=== PATIENT | female | born 1960 | race Caucasian/White ===

== ENCOUNTER 2018-02-26 08:16 | Emergency (ER) | payer OTHER ==
--- NOTE | 2018-02-26 08:26 | PDOC ---
History of Present Illness - General Chief Complaint: Ear Problem Stated Complaint: BOTH EAR PAIN Time Seen by Provider: 02/26/18 08:21 History Source: Patient Exam Limitations: No Limitations - History of Present Illness Initial Comments: 57 yo F history prediabetes presents with B/L ear pain, R worse than L. No drainage from ears, however, she states she has had multiple ear infections as an adult. Denies polyuria. No recent fever/chills. She has not had a check-up in "a while". Past History - Past Medical History Allergies/Adverse Reactions: Allergies Allergy/AdvReac Type Severity Reaction Status Date / Time oxycodone HCl [From Percocet] AdvReac Intermediate Vomiting Verified 02/26/18 08 :17 Home Medications: Ambulatory Orders Triamcinolone Acetonide [Nasacort] 1 spray NS BID #1 bottle 02/26/18 Anemia: No Asthma: No Cancer: No Cardiac Disorders: No CVA: No COPD: No CHF: No Dementia: No Diabetes: No GI Disorders: No Disorders: No HTN: No Hypercholesterolemia: No Liver Disease: No Seizures: No Thyroid Disease: No - Surgical History Abdominal Surgery: Yes ([facility]ANDA) Appendectomy: No Cardiac Surgery: No Cholecystectomy: No Lung Surgery: No Neurologic Surgery: Yes (CERVICAL DISCECTOMY LAST X 2 WITH HARDWARE 2007-LAST) Orthopedic Surgery: Yes (RIGHT KNEE ARTHROSCOPY X 2) - Suicide/Smoking/Psychosocial Hx Smoking Status: Yes Smoking History: Current every day smoker Have you smoked in the past 12 months: Yes Number of Cigarettes Smoked Daily: 10 'Breaking Loose' booklet given: 07/17/14 Hx Alcohol Use: No Drug/Substance Use Hx: No Substance Use Type: None Hx Substance Use Treatment: No Review of Systems - Review of Systems Able to Perform ROS?: Yes Comments:: GENERAL/CONSTITUTIONAL: No fever or chills. No weakness. HEAD, EYES, EARS, NOSE AND THROAT: No change in vision. +B/L ear pain, no discharge. No sore throat. GASTROINTESTINAL: No nausea, vomiting, diarrhea or constipation. GENITOURINARY: No dysuria, frequency, or change in urination. SKIN: No rash NEUROLOGIC: No headache, vertigo, loss of consciousness, or change in strength/ sensation. *Physical Exam - Physical Exam Comments: GENERAL: Awake, alert, and fully oriented, in no acute distress HEAD: No signs of trauma EYES: PERRLA, EOMI, sclera anicteric, conjunctiva clear ENT: Auricles normal inspection, hearing grossly normal, nares patent. Moist mucosa. +Dried cerumen in B/L EACs, however, TMs visible, no erythema, no effusion. No pain on movement of pinna. Nasal turbinates boggy B/L. NECK: Normal ROM, supple, no lymphadenopathy, JVD, or masses NEUROLOGICAL: Cranial nerves II through XII grossly intact. Normal speech, normal gait SKIN: Warm, Dry, normal turgor, no rashes or lesions noted. Medical Decision Making - Medical Decision Making No visible signs of infection. However, she did have boggy turbinates and commented that her ears hurt when she chews. This may be result of allergic symptoms. Recommended nasacort spray daily for at least a week to see effect. Also checked patient's insurance and cross-referenced with [place] providers so that she could get a new PMD (she is not satisfied with current PMD), as she needs to resume outpatient f/u (previously lost her insurance, recently got it back). *DC/Admit/Observation/Transfer Diagnosis at time of Disposition: Ear pain Qualifiers: Laterality: bilateral Qualified Code(s): H92.03 - Otalgia, bilateral - Discharge Dispostion Disposition: HOME Condition at time of disposition: Stable Decision to Admit order: No - Prescriptions Prescriptions: Triamcinolone Acetonide [Nasacort] 1 spray NS BID #1 bottle - Referrals Referrals: Virgilio Weaver MD [Staff Physician] - - Patient Instructions Printed Discharge Instructions: DI for Ear Pain-Adult - Post Discharge Activity
[2018-02-26 08:34] VITALS: BP 102/60; PULSE 72; TEMP 97.5; BMI 58.6
== END 2018-02-26 09:03 | disposition home or self-care (01) ==
LOC: FER 08:16
DX: H92.03 Otalgia, bilateral (principal); F17.210 Nicotine dependence, cigarettes, uncomplicated
CPT/HCPCS: 82962; 99282-25

== ENCOUNTER 2019-12-18 23:05 | Emergency (ER) | payer OTHER ==
[2019-12-18 23:12] VITALS: BP 101/64; PULSE 76; TEMP 98.5; BMI 26.4
--- NOTE | 2019-12-19 00:08 | PDOC ---
History of Present Illness - General Chief Complaint: Pain Stated Complaint: CHEST, ABDOMINAL PAIN Time Seen by Provider: 12/18/19 23:23 History Source: Patient Exam Limitations: No Limitations - History of Present Illness Initial Comments: 12/19/19 00:06 This is a 59-year-old female who comes in complaining of abdominal pain and chest pain. Patient has had abdominal pain x2 to 3 weeks intermittent associated with some constipation. Patient has been straining at her stools and had some intermittent bright red blood as well. Patient attempted to self disimpact herself but was unsuccessful as she said the rectal vault was empty. Patient also gave herself a fleets enema without any relief. Patient is also tried [id number] Dulcolax patient otherwise to his denies history of chronic constipation patient denies history of abdominal surgery or any other significant medical history. Allergies: as per nursing notes Past Medical History: none Social history: Lives with family. No smoking. No alcohol. No illicit drugs. Surgical history: None General: No fevers or chills, no weakness, no weight loss HEENT: No change in vision. No sore throat,. No ear pain CardioVascular: no chest discomfort. No shortness of breath Respiratory:No cough, or wheezing. Gastrointestinal: no nausea, vomiting, diarrhea or constipation, No rectal bleeding Genitourinary: No dysuria, hematuria, or frequency Musculoskeletal: No joint or muscle pain or swelling Neurologic: No headache, vertigo, dizziness or loss of consciousness Psychiatric: nor depression Skin: No rashes or easy bruising Endocrine: no increased thirst or abnormal weight change Allergic: no skin or latex allergy All other systems reviewed and normal Exam: General: Well-nourished well-developed individual, no acute distress HEENT: Throat: Normal, tonsils normal, no erythema or exudate Neck: Supple, no meningeal signs, no lymphadenopathy Eyes::Pupils equal reactive and round, extraocular motion intact Chest: Nontender to palpation Cardiac: S1-S2 normal, regular rate and rhythm, no murmurs rubs or gallops Respiratory: Lungs clear to auscultation bilateral Abdomen: Soft, nondistended, normal bowel sounds, there is no tenderness on palpation diffusely Rectal guaiac negative small amount of brown stool in rectal vault otherwise rectal vault empty Extremities: Warm, dry, no cyanosis, clubbing, or edema Skin: No rashes Neuro: Alert and oriented x3, CN II - XII intact, nonfocal exam with normal strength, normal sensation, normal reflexes, normal gait, Psych: Normal mood and affect Past History - Medical History Allergies/Adverse Reactions: Allergies Allergy/AdvReac Type Severity Reaction Status Date / Time oxycodone HCl [From Percocet] AdvReac Intermediate Vomiting Verified 12/18/19 23:08 Home Medications: Ambulatory Orders NK [No Known Home Medication] 12/18/19 Anemia: No Asthma: No Cancer: No Cardiac Disorders: No CVA: No COPD: No CHF: No Dementia: No Diabetes: No GI Disorders: No Disorders: No HTN: No Hypercholesterolemia: No Liver Disease: No Seizures: No Thyroid Disease: No Other medical history: degenerative disc disease - Surgical History Abdominal Surgery: Yes ([facility]AN[facility]) Appendectomy: No Cardiac Surgery: No Cholecystectomy: No Lung Surgery: No Neurologic Surgery: Yes (CERVICAL DISCECTOMY LAST X 2 WITH HARDWARE 2007-LAST) Orthopedic Surgery: Yes (RIGHT KNEE ARTHROSCOPY X 2) - Psycho-Social/Smoking History Smoking Status: Yes Smoking History: Current every day smoker Have you smoked in the past 12 months: Yes Number of Cigarettes Smoked Daily: 20 Information on smoking cessation initiated: No 'Breaking Loose' booklet given: 07/17/14 - Substance Abuse Hx (Audit-C & DAST Scrn) How often the patient has a drink containing alcohol: Never Score: In Men: 4 or > Positive; In Women: 3 or > Positive: 0 Screen Result (Pos requires Nsg. Audit-10AR): Negative In the last yr the pt used illegal drug/Rx for NonMed reason: No Score: Yes response is considered Positive: 0 Screen Result (Positive result requires Nsg. DAST-10): Negative *Physical Exam - Vital Signs Last Vital Signs Temp Pulse Resp BP Pulse Ox 98.5 F 76 18 101/64 97 12/18/19 23:09 12/18/19 23:09 12/18/19 23:09 12/18/19 23:09 12/18/19 23:09 Discharge - Discharge Information Problems reviewed: Yes Clinical Impression/Diagnosis: Constipation Qualifiers: Constipation type: unspecified constipation type Qualified Code(s): K59.00 - Constipation, unspecified Condition: Stable Disposition: HOME - Admission No - Follow up/Referral - Patient Discharge Instructions Additional Instructions: You have 2 bottles of mag citrate that you should drink tomorrow for your constipation. Follow-up with your [facility] doctor Dr. Isbell. Return to the emergency department immediately with ANY new, persistent or worsening symptoms. Continue any medications as previously prescribed by your physician. You should follow up with your primary doctor as soon as possible regarding to day's emergency department visit. . Please make sure your doctor reviews the results of your emergency evaluation. Thank you for coming to the Emergency Department today for your care. It was a pleasure to see you today. Please note that your evaluation is INCOMPLETE until you follow-up with your doctor. - Post Discharge Activity
[2019-12-19 01:31] LABS: EOS % 3.4 % (0-4.5); HEMATOCRIT 36.9 % (32.4-45.2); HEMOGLOBIN 12.2 GM/dL (10.7-15.3); LYMPH % 33.5 % (8-40); MCH 25.8 pg (25.7-33.7); MEAN CELL VOLUME 78.2 fl (80-96); MEAN PLT VOLUME 7.6 fl (7.5-11.1); MONO % 9.9 % (3.8-10.2); NEUT % 52.2 % (42.8-82.8); PLATELET COUNT 299 K/MM3 (134-434); RBC 4.72 M/mm3 (3.60-5.2); RDW 16.5 % (11.6-15.6)
[2019-12-19] MEDS ORDERED: MAGNESIUM CITRATE 300 ML BOTTLE PO ONE ×2 (01:34→01:36)
[2019-12-19 01:55] LABS: ALBUMIN 3.5 g/dl (3.4-5.0); ALK PHOS 61 U/L (45-117); ANION GAP 5 MMOL/L (8-16); BILIRUBIN,TOTAL 0.2 mg/dL (0.2-1); BLOOD UREA NITROGEN 15.5 mg/dL (7-18); CALCIUM 9.2 mg/dL (8.5-10.1); CHLORIDE 106 mmol/L (98-107); CO2 29 mmol/L (21-32); CREATININE 0.7 mg/dL (0.55-1.3); GLUCOSE,RANDOM 98 mg/dL (74-106); POTASSIUM 4.2 mmol/L (3.5-5.1); SGOT/AST 12 U/L (15-37); SGPT/ALT 19 U/L (13-61); SODIUM 140 mmol/L (136-145); TOT PROT 6.8 g/dl (6.4-8.2)
[2019-12-19] MEDS ORDERED: MAG HYDROX/AL HYDROX/SIMETH 30 ML UNIT-DOSE CUP PO ONE (02:04)
[2019-12-19] MEDS ORDERED: MAG HYDROX/AL HYDROX/SIMETH 30 ML UNIT-DOSE CUP ONE (02:11)
--- NOTE | 2019-12-19 09:14 | EKG ---
Test Reason : Blood Pressure : / mmHG Vent. Rate : 067 BPM Atrial Rate : 067 BPM P-R Int : 218 ms QRS Dur : 096 ms QT Int : 412 ms P-R-T Axes : 073 061 067 degrees QTc Int : 435 ms SINUS RHYTHM WITH 1ST DEGREE A-V BLOCK OTHERWISE NORMAL ECG NO PREVIOUS ECGS AVAILABLE Confirmed by MD JO-ANN, DOREEN ([id number]) on 12/19/2019 9:14:23 AM Referred By: CARMELA MARRUFO Confirmed By:DOREEN BUSCH MD
== END 2019-12-19 02:14 | disposition home or self-care (01) ==
LOC: FER 23:05
DX: K59.00 Constipation, unspecified (principal)
CPT/HCPCS: 36415; 74019-TC-FY; 80053; 82550; 84484; 85025; 93005; 99284-25

== ENCOUNTER 2021-01-14 04:17 | Day surgery (SDC) | payer OTHER ==
[2021-01-13 10:56] VITALS: BMI 28.3
[2021-01-14] MEDS ORDERED: DEXAMETHASONE SOD PHOSPHATE 4 MG/1 ML VIAL ONE (11:48)
[2021-01-14] MEDS ORDERED: MIDAZOLAM HCL 2 MG/2 ML SINGLE DOSE VIAL ONE ×2 (11:48→12:19)
[2021-01-14] MEDS ORDERED: PROPOFOL 20 ML ONE (11:48)
[2021-01-14] MEDS ORDERED: BACITRACIN 15 GM TUBE TOPICAL OINTMENT ONE (13:10)
[2021-01-14] MEDS ORDERED: traMADol HCL 50 MG TABLET PO ONE (13:40)
[2021-01-14] MEDS ORDERED: ONDANSETRON 4 MG/2 ML VIAL IVPUSH PRN (13:40)
[2021-01-14] MEDS ORDERED: LACTATED RINGERS SOLUTION 1,000 ML IV SCH (13:45)
[2021-01-14 17:20] VITALS: BP 100/65; PULSE 58; TEMP 97.8
== END 2021-01-14 16:59 | disposition home or self-care (01) ==
LOC: JASU-SURG 04:17
PROVIDERS: ATTEND Specialist
PROC: 0UBMXZZ Excision of Vulva, External Approach (ICD-10-PCS; principal; 2021-01-14 11:00)
DX: N90.7 Vulvar cyst (principal)
CPT/HCPCS: 94760

== ENCOUNTER 2021-04-29 15:45 | Emergency (ER) | payer OTHER ==
[2021-04-29 16:45] VITALS: BP 94/68; PULSE 94; TEMP 98.7; BMI 26.6
[2021-04-29] MEDS ORDERED: SODIUM CHLORIDE 0.9% 500 ML INFUS.BAG IV ONE (16:52)
[2021-04-29] MEDS ORDERED: ONDANSETRON 4 MG/2 ML VIAL IVPUSH ONE (16:53)
[2021-04-29] MEDS ORDERED: ONDANSETRON 4 MG/2 ML VIAL ONE ×2 (17:03→17:09)
[2021-04-29 17:45] LABS: BASO % 0.8 % (0-2.0); EOS % 1.2 % (0-4.5); HEMATOCRIT 39.8 % (32.4-45.2); HEMOGLOBIN 13.2 GM/dL (10.7-15.3); LYMPH % 35.1 % (8-40); MCH 25.4 pg (25.7-33.7); MCHC 33.1 g/dl (32.0-36.0); MEAN CELL VOLUME 76.8 fl (80-96); MEAN PLT VOLUME 7.9 fl (7.5-11.1); MONO % 15.7 % (3.8-10.2); NEUT % 47.2 % (42.8-82.8); PLATELET COUNT 184 10^3/uL (134-434); RBC 5.19 M/mm3 (3.60-5.2); RDW 17.3 % (11.6-15.6); WHITE BLOOD COUNT 3.8 K/mm3 (4.0-10.0)
[2021-04-29] MEDS ORDERED: ACETAMINOPHEN 325 MG TABLET (FP) ONE (17:46)
[2021-04-29 17:58] LABS: CALCIUM 8.7 mg/dL (8.5-10.1)
[2021-04-29 17:59] LABS: ALBUMIN 3.2 g/dl (3.4-5.0)
[2021-04-29 18:02] LABS: CREATININE 0.8 mg/dL (0.55-1.3)
[2021-04-29 18:04] LABS: BILIRUBIN,TOTAL 0.2 mg/dL (0.2-1); TOT PROT 6.8 g/dl (6.4-8.2)
== END 2021-04-29 19:00 | disposition home or self-care (01) ==
LOC: JCOVINFU 15:45 → JER 15:45 → JCOVINFU 19:00
PROC: 3E033GC Introduction of Other Therapeutic Substance into Peripheral Vein, Percutaneous Approach (ICD-10-PCS; principal; 2021-04-29)
DX: J11.1 Influenza due to unidentified influenza virus with other respiratory manifestations (principal)
CPT/HCPCS: 36415; 80053; 85025; 87804; 99284-25; C9803; U0003; U0005

== ENCOUNTER 2021-04-30 13:45 | Emergency (ER) | payer OTHER ==
[2021-04-30 14:25] VITALS: TEMP 98.5; BMI 26.6
[2021-04-30] MEDS ORDERED: CASIRIVIMAB/IMDEVIMAB 10 ML in SODIUM CHLORIDE 100 ML IVPB ONE (16:21)
[2021-04-30 18:29] VITALS: BP 105/64; PULSE 70
== END 2021-04-30 18:43 | disposition home or self-care (01) ==
LOC: JCOVINFU 13:45
PROC: 3E033GC Introduction of Other Therapeutic Substance into Peripheral Vein, Percutaneous Approach (ICD-10-PCS; principal; 2021-04-30)
DX: U07.1 COVID-19 (principal)
CPT/HCPCS: 99284-25; Q0240